=== PATIENT | female | born 1995 | race African-American/Black ===

== ENCOUNTER 2017-06-28 18:01 | Emergency (ER) | payer MEDICAID ==
[~2017-06-28] VITALS: Ht 152.4 cm; Wt 68.0 kg
[2017-06-28 19:00] VITALS: BP 134/85
== END 2017-06-28 21:14 | disposition home or self-care (01) ==
LOC: ER 18:03
DX: H10.9 Unspecified conjunctivitis (principal)

== ENCOUNTER → 2021-12-21 | Outpatient (CLI) | payer MEDICAID ==
[2021-12-21 12:54] LABS: Follicle Stimulating Hormone 5.28 IU/L (SEE BELOW); Leuteinizing Hormone 11.6 IU/L
== END | disposition home or self-care (01) ==
LOC: LAB 10:06
PROVIDERS: ATTEND Obstetrics & Gynecology
DX: N92.6 Irregular menstruation, unspecified (principal)
CPT/HCPCS: 36415; 82670; 83001; 83002; 84403; 84443